=== PATIENT | male | born 1970 | race African-American/Black ===

== ENCOUNTER 2017-02-26 01:18 | Emergency (ER) | payer BC ==
[~2017-02-26] VITALS: Ht 182.9 cm; Wt 145.0 kg
[~2017-02-26 01:18] MED LIST: ALBUL
[2017-02-26 01:50] VITALS: BP 152/73
== END 2017-02-27 03:30 | disposition left against medical advice (07) ==
LOC: ER 01:35
DX: M54.2 Cervicalgia (principal); M25.511 Pain in right shoulder; M54.5 Low back pain; Z53.21 Procedure and treatment not carried out due to patient leaving prior to being seen by health care provider

== ENCOUNTER 2017-02-27 00:05 | Emergency (ER) | payer BC ==
[~2017-02-27] VITALS: Ht 182.9 cm; Wt 147.0 kg
[2017-02-27] MEDS ORDERED: KETOROLAC 60MG/2ML VIAL IM ONE (04:30)
[2017-02-27 04:45] VITALS: BP 123/80
== END 2017-02-27 04:48 | disposition home or self-care (01) ==
LOC: ER 00:05
DX: S10.93XA Contusion of unspecified part of neck, initial encounter (principal); S40.011A Contusion of right shoulder, initial encounter; J45.909 Unspecified asthma, uncomplicated; F17.210 Nicotine dependence, cigarettes, uncomplicated; X50.0XXA Overexertion from strenuous movement or load, initial encounter; X50.3XXA Overexertion from repetitive movements, initial encounter; X50.1XXA Overexertion from prolonged static or awkward postures, initial encounter; Y93.B3 Activity, free weights; Y92.39 Other specified sports and athletic area as the place of occurrence of the external cause
CPT/HCPCS: 96372; 99283; J1885; Z7610